=== PATIENT | male | born 1970 | race Caucasian/White ===

== ENCOUNTER 2020-02-19 08:25 | Day surgery (SDC) | payer MEDICAID, SELFPAY ==
--- NOTE | 2020-02-16 10:27 | HO.ANESPROP2 ---
HPI - Anesthesia Eval Consult details Narrative: 50yo M for umbilical hernia repair PMFSH Past Medical History Medical History (Updated 02/16/20 @ 11:01 by Adelita Loredo) Arthritis Back pain Elevated cholesterol Hepatitis C HTN (hypertension) Opioid abuse Surgical History Surgical History (Updated 02/16/20 @ 10:43 by Celsa Mckeon) History of arthroscopy of left knee Social History Social History (Updated 02/16/20 @ 11:00 by Adelita Loredo) Smoking Status: Current every day smoker Packs Per Day: 0.5 Cigarettes Per Day: 10.0 Years Smoked: 20 Use of substances other than those prescribed or required for medical reasons: Yes Substance Use Type: Marijuana Other Past Substance Use Problem:: h/o opioid, suboxone daily Meds Allergies Allergy/AdvReac Type Severity Reaction Status Date / Time No Known Allergies Allergy Unverified 02/01/20 19:36 [No Known Allergies*] Home Medications Medication Instructions Recorded Confirmed Type amlodipine 5 mg PO DAILY 02/16/20 02/16/20 History gabapentin 300 mg PO TID 02/16/20 02/16/20 History glecaprevir-pibrentasvir [Mavyret] 3 tab PO DAILY 02/16/20 02/16/20 History lisinopril 40 mg PO DAILY 02/16/20 02/16/20 History rosuvastatin [Crestor] 10 mg PO DAILY 02/16/20 02/16/20 History spironolactone 25 mg PO DAILY 02/16/20 02/16/20 History Exam Exam Date and Time: February 16, 2020 1027 Assessment and Plan Assessment Anesthesia Assessment: Chart Reviewed
[2020-02-16 10:40] VITALS: BMI 41.6
[2020-02-19 08:31] VITALS: BP 107/66; PULSE 67; RESP 20; TEMP 36.3; O2SAT 97
--- NOTE | 2020-02-19 13:22 | PC.NURSE ---
pt admitted to [facility] for umbilical hernia repair with Dr. Odonnell. pt has hx IV drug abuse and is difficult IV stick. pt stated you only get 4 tries to get my IV after 3 unsuccessful attempts by nursing and anesthesia, pt requested to leave. Dr Odonnell paged to see pt at the bedside. convinced patient to try one more time to get IV started for anesthesia for his operation. pt agreed to one more time and IV start was unsucessful. Pt requested to leave and ok with patient decision. pt to call general surgery office to reschedule repair of umbilical hernia. pt discharged from [facility] and sent home with family. no medications were given.
== END 2020-02-19 23:59 ==
LOC: HO.SSS 08:26
PROVIDERS: PCP Family Medicine; Visit Provider Surgery
DX: K42.9 Umbilical hernia without obstruction or gangrene (principal); F11.20 Opioid dependence, uncomplicated; I10 Essential (primary) hypertension; F17.210 Nicotine dependence, cigarettes, uncomplicated; Z53.9 Procedure and treatment not carried out, unspecified reason
CPT/HCPCS: J0690; J2250; J3010

== ENCOUNTER → 2020-03-26 10:16 | Outpatient (BNVA) | payer MEDICAID, SELFPAY | PROVIDERS: PCP Family Medicine; Visit Provider Surgery | DX: K42.9 Umbilical hernia without obstruction or gangrene (principal) | CPT/HCPCS: 99212 ==

== ENCOUNTER 2020-04-04 06:37 | Day surgery (SDC) | payer MEDICAID, SELFPAY ==
[2020-03-28 20:27] VITALS: BMI 84.9
--- NOTE | 2020-04-03 12:19 | P.CONAN_ITS ---
Documented by User: Adelita Loredo 04/03/20 12:21 HPI - Anesthesia Eval Consult details Narrative: 50yo M for Umbilical Hernia Repair Multiple cancels previously d/t poor IV access. Central line to be placed preoperatively. [facility] Past Medical History Medical History Arthritis Back pain Elevated cholesterol Hepatitis C HTN (hypertension) Opioid abuse Umbilical hernia Surgical History Surgical History History of arthroscopy of left knee Social History Social History Smoking Status: Current every day smoker Packs Per Day: 0.5 Cigarettes Per Day: 10.0 Years Smoked: 20 Smoked in Last 30 Days: Yes Patient Interested in Nicotine Replacement: No Use of substances other than those prescribed or required for medical reasons: No Substance Use Type: Marijuana Advance Directives: No Advance Directives Information Provided: No Advance Directives on File: No Meds Allergies Allergy/AdvReac Type Severity Reaction Status Date / Time No Known Allergies Allergy Unverified 02/01/20 19:36 [No Known Allergies*] Home Medications Medication Instructions Recorded Confirmed Type amlodipine 5 mg PO DAILY 02/16/20 03/28/20 History glecaprevir-pibrentasvir [Mavyret] 3 tab PO DAILY 02/16/20 03/28/20 History lisinopril 40 mg PO DAILY 02/16/20 03/28/20 History rosuvastatin [Crestor] 10 mg PO DAILY 02/16/20 03/28/20 History spironolactone 25 mg PO DAILY 02/16/20 03/28/20 History buprenorphine-naloxone [Suboxone] 1 film BUCCAL DAILY 02/19/20 03/28/20 History gabapentin 300 mg PO TID 03/29/20 03/29/20 History Exam Exam Date and Time: April 03, 2020 1219 Height,Weight and Vital Signs: Height 6 ft 3 in Weight 308 kg Assessment and Plan Assessment Anesthesia Assessment: Chart Reviewed Documented by User: Josie Coleman 04/04/20 09:25 [facility] Past Medical History Medical History Arthritis Back pain Elevated cholesterol Hepatitis C HTN (hypertension) Opioid abuse Umbilical hernia Family History Family history of problems with anesthesia: No Surgical History Surgical History History of arthroscopy of left knee History of Problems with Anesthesia: No Social History Social History Smoking Status: Current every day smoker Packs Per Day: 0.5 Cigarettes Per Day: 10.0 Years Smoked: 20 Smoked in Last 30 Days: Yes Patient Interested in Nicotine Replacement: No Use of substances other than those prescribed or required for medical reasons: No Substance Use Type: Marijuana Advance Directives: No Advance Directives Information Provided: No Advance Directives on File: No Meds Allergies Allergy/AdvReac Type Severity Reaction Status Date / Time No Known Allergies Allergy Unverified 02/01/20 19:36 [No Known Allergies*] Home Medications Medication Instructions Recorded Confirmed Type amlodipine 5 mg PO DAILY 02/16/20 03/28/20 History glecaprevir-pibrentasvir [Mavyret] 3 tab PO DAILY 02/16/20 03/28/20 History lisinopril 40 mg PO DAILY 02/16/20 03/28/20 History rosuvastatin [Crestor] 10 mg PO DAILY 02/16/20 03/28/20 History spironolactone 25 mg PO DAILY 02/16/20 03/28/20 History buprenorphine-naloxone [Suboxone] 1 film BUCCAL DAILY 02/19/20 03/28/20 History gabapentin 300 mg PO TID 03/29/20 03/29/20 History Exam Height,Weight and Vital Signs: Vital Signs Temp Pulse Resp BP Pulse Ox 04/04/20 07:40 98.4 F 93 16 129/81 96 Airway Mallampati Class: II TM Dist: >3cm Neck ROM: Full Loose/Missing/Broken Teeth: Yes (A few) Heart: RRR Lungs: CTAB Assessment and Plan Assessment Anesthesia Assessment: Anesthesia Plan Discussed and Chart Reviewed Final Anesthetic Review NPO: Yes ASA Class: III Final Preanesthetic Review: No Changes in Pt Med Stat, Meds/Allgs Chart Reviewed, Consent Obtained/Reviewed and Anes Risks/Benef Reviewed Patient Risk: Intermediate Procedure Risk: Low Anesthetic Plan Anesthetic Plan: GA Disposition: Standard PACU
[2020-04-04] VITALS (9 sets, daily range): BP systolic 118–148; BP diastolic 70–88; PULSE 64–93; RESP 8–20; TEMP 36.3–36.9; O2SAT 94–100; BMI 38.5
--- NOTE | 2020-04-04 07:24 | ECG_ITS ---
Test Reason : CHEST PAIN Blood Pressure : / mmHG Vent. Rate : 065 BPM Atrial Rate : 065 BPM P-R Int : 152 ms QRS Dur : 078 ms QT Int : 410 ms P-R-T Axes : 034 015 058 degrees QTc Int : 426 ms Normal sinus rhythm Nonspecific T wave abnormality Abnormal ECG When compared with ECG of 08-JUL-2018 22:47, Premature supraventricular complexes are no longer Present Nonspecific T wave abnormality now evident in Lateral leads Referred By: Harshad Gonzalez Electronically Signed By:DENISE MENARD MD
--- NOTE | 2020-04-04 07:36 | PC.NURSE ---
pt admitted to [facility] for umbilical hernia repair, pt states my chest hurts on the left side upon investigation pt states that pain is radiating to left arm. vitals signs stable. BP 129/81, HR 93, resp 18, O2 96% on room air. Dr. Gonzalez ordered 12 lead EKG. EKG shows normal sinus rhythm. full time staff interpreter and Dr. Gonzalez at bedside explaining need for central line and explaining findings of EKG. pt agreeable to central line.
--- NOTE | 2020-04-04 07:47 | MHC.SHP ---
Pre-Procedural Eval Section A The patient is an INPATIENT: No Changes since office visit: Yes Patient answered all questions; No Cold of Flu in the past 2 weeks, No New Medical Problems and No Changes in Medication The History & Physical has been completed within 30 days and I have reviewed it.: Yes Section B Chief Complaint: Umbilical Hernia Allergies: Allergies Allergy/AdvReac Type Severity Reaction Status Date / Time No Known Allergies Allergy Unverified 02/01/20 19:36 [No Known Allergies*] Plan Diagnosis/Plan: Unchanged Patient has been examined and remains a candidate for the planned procedure
--- NOTE | 2020-04-04 09:58 | P.BOP_ITS ---
Brief Operative Note Date of Service: 04/04/20 Pre-op diagnosis: Umbilical hernia Post-op diagnosis: same Procedure: Repair of umbilical hernia with mesh Implants: [address] mesh Surgeon: Eliecer Odonnell MD Anesthesia: GETA Aquarium Tank Attendant: Ericka Rodriguez Estimated blood loss (mL): 2 Pathology: none sent Condition: stable Disposition: PACU
--- NOTE | 2020-04-04 10:06 | W.PM.OPN ---
Operative Note Operative Note Date of Service: 04/04/20 Narrative: Preoperative diagnosis:Umbilical hernia Postoperative diagnosis: Same Procedure: Repair of umbilical hernia with mesh Surgeon: Eliecer Odonnell MD Clinical Services Consultant: NICOLAS Tejada Anesthesia: General endotracheal Indications for procedure: 50-year-old male patient presenting with a painful lump in the umbilicus which has increased in size over the past year. Patient is able to reduce the lump but feels the pain has increased especially when pressure is applied to the abdominal wall. Operative findings: Patient was found to have a 5 cm fascial defect at the umbilicus. This was repaired using an 8 cm round Ventralex mesh Specimen: None Estimated blood loss: 2 mL Complications: None Procedure details: Patient was brought to the OR placed in a supine position. After administering general anesthesia the patient's abdomen was prepped with ChloraPrep and draped in a sterile fashion. A surgical time-out was called consent confirmed. Patient received preoperative antibiotics and Venodyne boots were in place. Local anesthesia consisting of 0.75% Sensorcaine with epinephrine was infiltrated around the umbilicus in the midline. Incision was made in the midline surrounding the umbilicus carried out through subcutaneous tissue. Hernia sac was easily identified and dissected down to the fascial edge. The fascial margins were then clearly demarcated. Preperitoneal space was then entered and this was widened using electrocautery. Preperitoneal space was widened to allow an 8 cm mesh. At this point the Ventralex 8 cm round mesh was obtained. This was placed into the preperitoneal space using a parachute type technique with 4 quadrant sutures of 1. Tycron sutures. The mesh was then placed in the preperitoneal space and the 4 quadrant sutures tied off. The fascia was then closed over the mesh in clear operating the mesh into the closure using [id number] 1. Tycron sutures. The wounds were then irrigated with saline solution and suctioned dry. Additional local was infiltrated into the muscular and subcutaneous tissue. Umbilical skin was then reapproximated to the fascia using a 3-0 Polysorb suture. Subcutaneous tissue and dermis reapproximated using interrupted 3 0 Polysorb sutures. Skin was then closed using a running subcuticular 4-0 Polysorb suture. Steri-Strips 4 x 4 gauze and Tegaderm was then applied. The patient tolerated the procedure well. Sponge, instrument, needle counts reported as correct. Patient was transferred to PACU in stable condition.
[2020-04-04] MEDS: Ketorolac Tromethamine 30 MG/ML VIAL IVPUSH (10:35)
[2020-04-04] MEDS: oxyCODONE HCl Immed Release 5 MG TABLET 10 MG PO (10:38)
[2020-04-04] MEDS: fentaNYL citrate/PF 100 MCG/2 ML VIAL 25 MCG IVPUSH (10:43)
--- NOTE | 2020-04-04 11:20 | HO.POSTANES ---
Post Anesthesia Evaluation Post Anesthesia Evaluation Vital Signs: Vital Signs Temp Pulse Resp BP Pulse Ox 04/04/20 11:00 97.4 F 68 20 123/84 96 04/04/20 10:46 68 18 118/86 95 04/04/20 10:43 20 04/04/20 10:40 64 8 L 122/77 94 04/04/20 10:25 70 18 127/70 94 04/04/20 10:20 79 18 138/80 97 04/04/20 10:15 80 16 140/80 H 100 04/04/20 10:10 97.7 F 78 12 148/88 H 100 04/04/20 07:40 98.4 F 93 16 129/81 96 Anesthesia: General Endotracheal-GETA Mental Status: Awake Pain Control: Satisfactory Nausea/Vomiting: None Hydration: Adequate Anesthesia-Related Issues: No Anes. Related Issues
== END 2020-04-04 11:45 | disposition home or self-care (01) ==
PROVIDERS: PCP Family Medicine; Visit Provider Surgery
PROC: (CPT 49585; principal; 2020-04-04 08:30)
DX: K42.9 Umbilical hernia without obstruction or gangrene (principal); I10 Essential (primary) hypertension; B19.20 Unspecified viral hepatitis C without hepatic coma; M19.90 Unspecified osteoarthritis, unspecified site; E78.00 Pure hypercholesterolemia, unspecified; Z79.899 Other long term (current) drug therapy; F11.20 Opioid dependence, uncomplicated; F12.90 Cannabis use, unspecified, uncomplicated; F17.210 Nicotine dependence, cigarettes, uncomplicated
CPT/HCPCS: 49585; 93005; C1781; J0690; J1170; J1885; J2250; J2405; J3010

== ENCOUNTER → 2020-04-10 10:46 | Outpatient (BNVA) | payer MEDICAID, SELFPAY | PROVIDERS: PCP Family Medicine; Referring Provider Family Medicine; Visit Provider Surgery | DX: Z48.815 Encounter for surgical aftercare following surgery on the digestive system (principal) | CPT/HCPCS: 99212 ==

== ENCOUNTER 2020-04-16 12:18 | Emergency (ER) | payer MEDICAID, SELFPAY ==
--- NOTE | 2020-04-16 13:28 | PC.NURSE ---
pt angry because he is waiting, also states his abdomen no longer hurts and he is leaving.
== END 2020-04-16 13:30 | disposition left against medical advice (07) ==
PROVIDERS: Emergency Provider Emergency Medicine; PCP Family Medicine
DX: R10.9 Unspecified abdominal pain (principal)
CPT/HCPCS: 99281

== ENCOUNTER → 2020-04-17 15:21 | Outpatient (BNVA) | payer MEDICAID, SELFPAY | PROVIDERS: PCP Family Medicine; Visit Provider Surgery | DX: K42.9 Umbilical hernia without obstruction or gangrene (principal) | CPT/HCPCS: 99212 ==

== ENCOUNTER → 2020-04-26 09:18 | Outpatient (BNVA) | payer MEDICAID, SELFPAY | PROVIDERS: PCP Family Medicine; Visit Provider Surgery | DX: K42.9 Umbilical hernia without obstruction or gangrene (principal) | CPT/HCPCS: 99212 ==

== ENCOUNTER 2020-04-30 10:26 | Outpatient (REF) | payer MEDICAID, SELFPAY ==
[2020-04-30 12:16] LABS: MANUAL DIFF FLAG NO
[2020-04-30 12:20] LABS: Basophils Percent Auto 0.5 % (0-2); Eosinophils Absolute Auto 0.1 X10*3/uL (0.0-0.4); Eosinophils Percent Auto 2.5 % (0-4); Hematocrit 42.3 % (42-52); Hemoglobin 14.3 g/dl (14.0-18.0); Imm Gran Abs Auto 0.02 X10*3/uL (0.00-0.03); Imm Gran Pct Auto 0.4 % (0.0-0.4); Lymphocytes Absolute Auto 2.1 X10*3/uL (1.2-4.9); Lymphocytes Percent Auto 37.6 % (20-40); Mean Corpuscular HGB Conc 33.8 g/dl (31.0-36.0); Mean Corpuscular Hemoglobin 30.6 pg (27.0-33.0); Mean Corpuscular Volume 90.4 fL (80-98); Mean Platelet Volume 11.1 fL (9.4-12.4); Monocytes Absolute Auto 0.8 X10*3/uL (0.1-1.2); Monocytes Percent Auto 13.4 % (2-11); Neutrophils Absolute Auto 2.6 X10*3/uL (2.0-8.3); Neutrophils Percent Auto 45.6 % (45-73); Platelet Count 213 X10*3/uL (160-400); Red Blood Count 4.68 X10*6/uL (4.60-5.80); Red Cell Distribution Width 12.8 % (11.0-16.0); White Blood Count 5.6 X10*3/uL (4.8-10.8)
[2020-04-30 12:50] LABS: Alanine Aminotransferase 30 U/L (0-40); Alkaline Phosphatase 71 U/L (39-117); Anion Gap 12 (12-20); Aspartate Amino Transferase 38 U/L (5-37); Bilirubin Direct 0.2 mg/dL (0.0-0.5); Bilirubin Total 0.4 mg/dL (0.0-1.0); Blood Urea Nitrogen 15 mg/dL (9-16); Calcium 8.8 mg/dL (8.4-10.2); Carbon Dioxide 27 mmol/L (22-29); Chloride 103 mmol/L (96-108); Cholesterol 144 mg/dL; Estimated Glomerular Filt Rate > 60; Glucose Random 77 mg/dL (60-115); HDL Cholesterol 37 mg/dL; LDL Cholesterol Calculated 81 mg/dl; Potassium 5.2 mmol/l (3.3-5.1); Sodium 137 mmol/L (135-145); Total Protein 7.3 g/dL (6.5-8.0); Triglycerides 131 mg/dL
[2020-04-30 12:56] LABS: Estimated Average Glucose 117 mg/dL; Hemoglobin A1c % 5.7 %
[2020-05-02 04:02] LABS: ~Hepatitis C Antibody Reactive (Nonreactive)
[2020-05-02 04:12] LABS: HIV AB/AG Nonreactive (Nonreactive); HIV Num 1 0.06 S/CO (0.00-0.99)
== END 2020-04-30 10:27 | disposition home or self-care (01) ==
LOC: HO.LAB 10:26
PROVIDERS: PCP Family Medicine; Visit Provider Family Medicine
DX: B18.2 Chronic viral hepatitis C (principal); E78.5 Hyperlipidemia, unspecified; F11.20 Opioid dependence, uncomplicated
CPT/HCPCS: 36415; 80053; 80061; 80076; 82248; 83036; 85025; 86803; 87389; 87522; 99212

== ENCOUNTER → 2020-05-09 09:44 | Outpatient (BNVA) | payer MEDICAID, SELFPAY | PROVIDERS: PCP Family Medicine; Visit Provider Surgery | DX: Z48.815 Encounter for surgical aftercare following surgery on the digestive system (principal); Z87.19 Personal history of other diseases of the digestive system | CPT/HCPCS: 99212 ==

== ENCOUNTER → 2020-06-06 12:40 | Outpatient (BNVA) | payer MEDICAID, SELFPAY | PROVIDERS: PCP Family Medicine; Visit Provider Internal Medicine Cardiovascular Disease | DX: Z76.89 Persons encountering health services in other specified circumstances (principal) | CPT/HCPCS: 93005; 99212 ==

== ENCOUNTER → 2020-06-07 09:43 | Outpatient (BNVA) | payer MEDICAID, SELFPAY | PROVIDERS: PCP Family Medicine; Visit Provider Surgery | DX: Z76.89 Persons encountering health services in other specified circumstances (principal) | CPT/HCPCS: 99212 ==

== ENCOUNTER 2020-08-16 13:54 | Outpatient (REF) | payer MEDICAID, SELFPAY ==
--- NOTE | ~2020-08-16 | XR_ITS ---
EXAMINATION: XR SHOULDER, RIGHT CLINICAL INFORMATION: Right shoulder pain. COMPARISON: None TECHNIQUE: AP external rotation, Grashey, scapular Y, and axillary views of the right shoulder. FINDINGS: There is degenerative change of the glenohumeral joint with narrowing of the joint inferiorly and prominent spurring. Pit erosions are seen about the humeral head. No acute fracture or dislocation is seen. No calcific tendinitis. No significant abnormality of the acromioclavicular joint is noted. There is no widening of the coracoclavicular space. XR/XR shoulder RT min 2V IMPRESSION: Degenerative change of the glenohumeral joint with narrowing inferiorly and prominent spurring of the humeral head.
[2020-08-16 16:00] LABS: Alanine Aminotransferase 22 U/L (0-40); Alkaline Phosphatase 68 U/L (39-117); Aspartate Amino Transferase 32 U/L (5-37); Bilirubin Direct 0.3 mg/dL (0.0-0.5); Bilirubin Total 0.7 mg/dL (0.0-1.0); Total Protein 7.1 g/dL (6.5-8.0)
[2020-08-18 14:21] LABS: HCV Log PCR 6.84 Log IU/mL (NOT DETECTED)
== END 2020-08-16 13:55 | disposition home or self-care (01) ==
LOC: HO.LAB 13:54
PROVIDERS: PCP Nurse Practitioner Primary Care; Visit Provider Nurse Practitioner Primary Care
DX: G89.29 Other chronic pain (principal); M25.511 Pain in right shoulder; B19.20 Unspecified viral hepatitis C without hepatic coma
CPT/HCPCS: 36415; 73030; 80076; 87522

== ENCOUNTER → 2021-08-18 12:28 | Outpatient (BNVA) | payer MEDICAID, SELFPAY | PROVIDERS: PCP Nurse Practitioner Primary Care; Referring Provider Nurse Practitioner Primary Care; Visit Provider Internal Medicine Cardiovascular Disease | DX: R07.9 Chest pain, unspecified (principal) | CPT/HCPCS: 93005; 99212 ==

== ENCOUNTER 2022-06-11 08:15 | Outpatient (REF) | payer MEDICAID, SELFPAY ==
--- NOTE | ~2022-06-11 | MM_ITS ---
EXAMINATION: MM DIAGNOSTIC DIGITAL BREAST TOMOSYNTHESIS, BILATERAL US DIAGNOSTIC ULTRASOUND BREAST, BILATERAL CLINICAL INFORMATION: 52-year-old male with one-month bilateral nipple pain and mild palpable fullness anterior lower right. No discharge. No prior breast imaging. COMPARISON: None (current study represents initial baseline exam). TECHNIQUE: Digital breast tomosynthesis is performed in both the craniocaudal and mediolateral oblique views along with computer-aided detection (CAD). Synthesized 2D images are generated from the tomosynthesis. Ultrasound of both breasts is targeted to the retroareolar and periareolar regions with additional imaging on the right targeted to the area of palpable concern. Grayscale imaging and color Doppler are performed without and with harmonics. FINDINGS: There are scattered areas of fibroglandular density (ACR BI-RADS breast composition Category b). There is mild bilateral retroareolar gynecomastia type pattern, slightly greater on the right. There is no mass or architectural abnormality. No abnormal calcifications. No skin thickening or coarsening of the stromal markings. The axilla are unremarkable. The skin contours are smooth. Ultrasound bilateral breasts demonstrate mild bilateral retroareolar gynecomastia type pattern, slightly greater on the right. There is no cystic or solid mass or architectural abnormality. No skin thickening or edema tracking in soft tissue planes. Results are discussed with the patient at time of visit, using an parts interpreter. MM/MM tomosynthesis diagnostic BI IMPRESSION: -Mild bilateral retroareolar gynecomastia, slightly greater on right. ASSESSMENT: BI-RADS 2: Benign RECOMMENDATION: Patient should be managed based on the clinical impression.
== END 2022-06-11 08:16 | disposition home or self-care (01) ==
LOC: HO.MAMMO 08:15
PROVIDERS: Visit Provider Nurse Practitioner Primary Care
DX: N64.4 Mastodynia (principal)
CPT/HCPCS: 76642; 77062; 77066

== ENCOUNTER 2023-02-23 14:47 | Outpatient (REF) | payer MEDICAID, SELFPAY | END 2023-02-23 14:48 | disposition home or self-care (01) | LOC: HO.HHCL 14:47 | PROVIDERS: Visit Provider Nurse Practitioner Primary Care | DX: I10 Essential (primary) hypertension (principal); E78.5 Hyperlipidemia, unspecified; R73.01 Impaired fasting glucose | CPT/HCPCS: 36415; 80053; 80061; 82043; 82570; 83036 ==

== ENCOUNTER 2023-08-12 13:48 | Outpatient (REF) | payer MEDICAID, SELFPAY ==
[2023-08-12 16:39] LABS: Estimated Average Glucose 143 mg/dL; Hemoglobin A1c % 6.6 % (<6.0)
== END 2023-08-12 13:49 | disposition home or self-care (01) ==
LOC: HO.HHCL 13:48
PROVIDERS: Visit Provider Nurse Practitioner Primary Care
DX: R73.01 Impaired fasting glucose (principal)
CPT/HCPCS: 36415; 83036

== ENCOUNTER 2023-11-09 12:13 | Outpatient (REF) | payer MEDICAID, SELFPAY | END 2023-11-09 12:14 | disposition home or self-care (01) | LOC: HO.HHCL 12:13 | PROVIDERS: Visit Provider Nurse Practitioner Primary Care | DX: Z13.89 Encounter for screening for other disorder (principal) ==

== ENCOUNTER 2024-02-17 09:40 | Outpatient (REF) | payer MEDICAID, SELFPAY ==
[2024-02-17 11:39] LABS: Alanine Aminotransferase 12 U/L (0-40); Alkaline Phosphatase 53 U/L (39-117); Aspartate Amino Transferase 20 U/L (5-37); Bilirubin Direct 0.1 mg/dL (0.0-0.5); Bilirubin Total 0.3 mg/dL (0.0-1.0); Total Protein 7.2 g/dL (6.5-8.0)
[2024-02-17 12:18] LABS: HIV AB/AG Nonreactive (Nonreactive); HIV Num 1 0.06 S/CO (0.00-0.99)
[2024-02-19 13:33] LABS: HCV Log PCR <1.18 NOT DETECTED Log IU/mL (NOT DETECTED); HepC Viral Load <15 NOT DETECTED IU/mL (NOT DETECTED)
== END 2024-02-17 09:41 | disposition home or self-care (01) ==
LOC: HO.HHCL 09:40
PROVIDERS: Visit Provider Family Medicine
DX: F11.91 Opioid use, unspecified, in remission (principal)
CPT/HCPCS: 36415; 80076; 87389; 87522

== ENCOUNTER 2024-08-01 11:05 | Outpatient (REF) | payer MEDICAID, SELFPAY ==
--- OUTSIDE RECORDS SUMMARY | 2024-08-01 13:21 | XMS_ITS | Encounter Summary ---
Author Organization [employer] Address [address] [facility] [address] [place] [address] Care Team Providers Care Spar Machine Operator Name Role Phone Magali Meléndez Primary Care Provider [phone] Reason for Visit * Reason Comments Med Refill Encounter Details Date Type Department Care Team ([facility] st Contact Info) Description 05/29/2024 Refill [facility] [address] [place], [place] [phone] Giorgio Gloria MD [address], [place] [phone] Uncomplicated opioid dependence (CMS/HCC) Social History Tobacco Use Types Packs/Day Years Used Date Smoking Tobacco: Former Cigarettes Smokeless Tobacco: Never Alcohol Use Standard Drinks/Week Comments Never 0 (1 standard drink = 0.6 oz pur e alcohol) Alcohol Answer Date Recorded How often do you have a drink containing alcohol ? 0 02/23/2023 Average Number of Drinks Not on file 023 How often do you have six or more drinks on one occasion? 0 02/23/2023 Score 0 02/23/2023 Depression Answer Date Recorded Patient Health Questionnaire-9 Score 10 02/24/2024 Patient Health Questionnaire-9 Score 10 02/24/2024 Last PHQ-9: Questionnaire Data Not on file 1 Housing Stability Answer Date Recorded What is your housing situation today? I have lanette calderon 05/11/[address] you li ve. Do you have problems with any of the following? None of the above 05/11/2024 Food Insecurity Answer Date Recorded Within the past 12 months, y ou worried that your food would run out before you got money to buy more: Never True 05/11/2024 Within the past 12 months,th e food you bought just didn't last and you didn't have enough money to get more: Never True Transportation Answer Date Recorded In the past 12 months, has l ack of transportation kept you from medical appts, meetings, work or from getting things needed for daily living? No 05/11/2024 Utilities Answer Date Recorded In the past 12 months, has t he electric, gas, oil or water company threatened to shut off services in your home? No 05/11/2024 Depression Answer Date Recorded Patient Health Questionnaire-2 Score 4 02/24/2024 Internet Access Answer Date Recorded Internet Access Q1 Yes 05/11/2024 Internet Access Q2 Not on file 05/11/2024 Sex and Gender Information Value Date Recorded Sex Assigned at Male 03/16/2022 10:34 AM EDT Legal Sex Male 10:34 AM EDT Gender Identity Male 03/16/2022 10:34 AM EDT Sexual Orientation Straight 03/16/2022 10 :34 AM EDT documented as of this encounter Plan of Treatment Upcoming Encounters Date Type Department Care Team (Late st Contact Info) Description 08/09/2024 10:15 AM EDT Telemedicine [facility] [address] [place] [phone] Kailee Heath MD [address] [place] [phone] 08/10/2024 2:00 PM EDT Office Visit [facility] [address] [place] [phone] Magali Meléndez ANP [address] [place] [phone] documented as of this encounter Visit Diagnoses Diagnosis Uncomplicated opioid dependence (CMS/HCC) documented in this encounter Additional Health Concerns Assessment Noted Time PHQ-9 Depression Total Score: 10 024 2:27 PM EDT documented as of this encounter Care Teams Spar Machine Operator Relationship Specialty Start Date End Date Magali Meléndez ANP [address] [place] [phone] PCP - General Family Medicine 05/31/20 documented as of this encounter
--- OUTSIDE RECORDS SUMMARY | 2024-08-01 13:21 | XMS_ITS | Encounter Summary ---
Author Organization [employer] [facility] Address [address] [place] [address] 7[address] [place] [address] Care Team Providers Care Pulp Bleacher Name Role Phone Magali Meléndez Primary Care Provider [phone] Encounter Details Date Type Department Care Team (Latest Contact Info) Description 05/26/2019 Abstract [facility] Dental, Provider, DDS Social History Tobacco Use Types Packs/Day Years Used Date Smoking Tobacco: Never Assessed Sex and Gender Information Value Date Recorded Sex Assigned at Male 03/16/2022 10:34 AM EDT Legal Sex Male 10:34 AM EDT Gender Identity Male 03/16/2022 10:34 AM EDT Sexual Orientation Straight 03/16/2022 10 :34 AM EDT documented as of this encounter Plan of Treatment Upcoming Encounters Date Type Department Care Team (Late st Contact Info) Description 08/09/2024 10:15 AM EDT Telemedicine [facility] [address] [place] [phone] Kailee Heath MD [address] [place] [address] 08/10/2024 2:00 PM EDT Office Visit [facility] [address] [place] [phone] Magali Meléndez ANP [address] [place] [address] documented as of this encounter Visit Diagnoses Not on filedocumented in this encounter Care Teams Pulp Bleacher Relationship Specialty Start Date End Date Magali Meléndez ANP [address] [place] [phone] PCP - General Family Medicine 05/31/20 documented as of this encounter
--- OUTSIDE RECORDS SUMMARY | 2024-08-01 13:21 | XMS_ITS | Encounter Summary ---
Author Organization [employer] Address [address] [facility] [facility] [address] [place] [address] Care Team Providers Care Elementary Vocal Music Teacher Name Role Phone Magali Meléndez Primary Care Provider [phone] Encounter Details Date Type Department Care Team (Latest Contact Info) Description 07/07/2024 Travel Social History Tobacco Use Types Packs/Day Years [...] Info) Description 08/09/2024 10:15 AM EDT Telemedicine [facility] [address] [place] [phone] Kailee Heath MD [address] [place] [phone] 08/10/2024 2:00 PM EDT Office Visit [facility] [address] [place] [phone] Magali Meléndez ANP [address] [place] [phone] documented as of this encounter Goals Goal Patient Goal Type Associated Problems Recent Progress Patient-Stated? Author Increase coping skills to promote long-term recovery and improve ability to perform daily activities General No Jose De Jesus Gutierrez, JAYRO documented as of this encounter Visit Diagnoses Not on filedocumented in this encounter Additional Health Concerns Assessment Noted Time PHQ-9 Depression Total Score: 10 024 2:27 PM EDT documented as of this encounter Care Teams Elementary Vocal Music Teacher Relationship Specialty Start Date End Date Magali Meléndez ANP [address] [place] [phone] PCP - General Family Medicine 05/31/20 documented as of this encounter
--- OUTSIDE RECORDS SUMMARY | 2024-08-01 13:21 | XMS_ITS | Encounter Summary ---
Author Organization [employer] Address [address] [facility] [address] [place] [address] Care Team Providers Care Circuitry Negative Inspector Name Role Phone Magali Meléndez Primary Care Provider [phone] Reason for Visit * Reason Comments Med Refill Encounter Details Date Type Department Care Team ([facility] st Contact Info) Description 11/22/2023 Refill [facility] [address] [place], [place] [phone] Kailee Heath MD [address] [place], [place] [phone] Uncomplicated opioid dependence (CMS/[facility]) Social History Tobacco Use Types Packs/Day Years [...] Answer Date Recorded Patient Health Questionnaire-9 Score 16 09/06/2023 Patient Health Questionnaire-9 Score 16 09/06/2023 Last PHQ-9: Questionnaire Data Not on file 0 09/06/2023 Housing Stability Answer Date Recorded What is your housing situation today? I have lanette calderon 03/06/[address] you li ve. Do you have problems with any of the following? None of the above 03/06/2023 Food Insecurity Answer Date Recorded Within the past 12 months, y ou worried that your food would run out before you got money to buy more: Never True 03/06/2023 Within the past 12 months,th e food you bought just didn't last and you didn't have enough money to get more: Never True Transportation Answer Date Recorded In the past 12 months, has l ack of transportation kept you from medical appts, meetings, work or from getting things needed for daily living? No 03/06/2023 Utilities Answer Date Recorded In the past 12 months, has t he electric, gas, oil or water company threatened to shut off services in your home? No 03/06/2023 Depression Answer Date Recorded Patient Health Questionnaire-2 Score 6 09/06/2023 Sex and Gender Information Value Date Recorded Sex Assigned at Male 03/16/2022 10:34 AM EDT Legal Sex Male 10:34 AM EDT Gender Identity Male 03/16/2022 10:34 AM EDT Sexual Orientation Straight 03/16/2022 10 :34 AM EDT documented as of this encounter Plan of Treatment Upcoming Encounters Date Type Department Care Team (Late st Contact Info) Description 08/09/2024 10:15 AM EDT Telemedicine [facility] [address] [place] [phone] Kailee Heath MD [address] [place] [phone] 08/10/2024 2:00 PM EDT Office Visit [facility] [address] [place] [phone] Magali Meléndez ANP [address] [place] [phone] documented as of this encounter Visit Diagnoses Diagnosis Uncomplicated opioid dependence (CMS/HCC) documented in this encounter Additional Health Concerns Assessment Noted Time PHQ-9 Depression Total Score: 16 024 11:14 AM EDT documented as of this encounter Care Teams Circuitry Negative Inspector Relationship Specialty Start Date End Date Magali Meléndez ANP [address] [place] [phone] PCP - General Family Medicine 05/31/20 documented as of this encounter
--- OUTSIDE RECORDS SUMMARY | 2024-08-01 13:21 | XMS_ITS | Encounter Summary ---
Author Organization [employer] Address [address] [facility] [address] [place] [address] Care Team Providers Care Composing Machine Operator Name Role Phone Magali Meléndez Primary Care Provider [phone] Reason for Visit * Reason Onset Date Comments Med Refill 07/19/2024 Encounter Details Date Type Department Care Team (Late st Contact Info) Description 07/19/2024 Refill [facility] MED[facility]INE [address] [place] [id number] Jose De Jesus Gutierrez, JAYRO [address] [place] [address] Essential hypertension Social History Tobacco Use Types Packs/Day Years [...] AM EDT documented as of this encounter Miscellaneous Notes * Telephone Encounter - Jose De Jesus Gutierrez RN - 07/19/2024 10:58 AM EST Spoke with pt for OBAT, requesting refill on spironolactone. documented in this encounter Plan of Treatment Upcoming Encounters Date Type Department Care Team (Late st Contact Info) Description 08/09/2024 10:15 AM EDT Telemedicine [facility] MEDICINE [address] [place] [phone] Kailee Heath MD [address] [place] [phone] 08/10/2024 2:00 PM EDT Office Visit [facility] MED[facility]INE [address] [place] [address] [phone] Magali Meléndez ANP [address] [place] [phone] documented as of this encounter Goals Goal Patient Goal Type Associated Problems Recent Progress Patient-Stated? Author Increase coping skills to promote long-term recovery and improve ability to perform daily activities General No Jose De Jesus Gutierrez, JAYRO documented as of this encounter Visit Diagnoses Diagnosis Essential hypertension Unspecified essential hypertension documented in this encounter Additional Health Concerns Assessment Noted Time PHQ-9 Depression Total Score: 10 024 2:27 PM EDT documented as of this encounter Care Teams Composing Machine Operator Relationship Specialty Start Date End Date Magali Meléndez ANP [address] [place] [address] PCP - General Family Medicine 05/31/20 documented as of this encounter
--- OUTSIDE RECORDS SUMMARY | 2024-08-01 13:21 | XMS_ITS | Clinical Summary ---
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 ciclopirox (Penlac) 8 % solution Apply topically at bedtime. 6 mL 024 Active senna-docusate sodium (Senokot-S) 8.6-50 MG tabletIndications :Constipation, unspecified constipation type 1-2 tablets as needed daily for constipation 90 tablet 3 024 Active Alcohol Swabs padsIndications:T ype 2 diabetes mellitus with hyperlipidemia (CMS/HCC) (CMS/HCC) 1 each if needed (to clean skin). 100 each 11 024 Active FreeStyle lancetsIndication s:Type 2 diabetes mellitus with hyperlipidemia (CMS/HCC) (CMS/HCC) 1 each by Other route 2 times daily. 100 each 024 2024 Active FREESTYLE LITE test stripIndications: Type 2 diabetes mellitus with hyperlipidemia (CMS/HCC) (CMS/HCC) Use to check blood sugar twice daily or more as needed 100 each 024 Active Blood Glucose Monitoring Suppl (FreeStyle Lite) w/Device kitIndications:Ty pe 2 diabetes mellitus with hyperlipidemia (CMS/HCC) (CMS/HCC) 1 each in the morning. 1 kit 024 Active Diclofenac Sodium (Voltaren) 1 % gelIndications:Madhuri mbar spondylosis APPLY 2 GRAMS TOPICALLY TO THE AFFECTED AREA(S) UP TO FOUR TIMES DAILY IF NEEDED FOR PAIN 100 g 2 Active lisinopril 40 MG tabletIndications :Essential hypertension TAKE 1 TABLET BY MOUTH EVERY DAY 90 tablet 1 Active metFORMIN XR (Glucophage-XR) 500 MG 24 hr tabletIndications :Type 2 diabetes mellitus with hyperlipidemia (CMS/HCC) (CMS/HCC) TAKE 1 TABLET BY MOUTH EVERY DAY WITH DINNER DO NOT BREAK, CRUSH, DISSOLVE OR CHEW 90 tablet 1 Active naloxone (Narcan) 4 mg/0.1 mL nasal spray Administer 1 spray (4 mg) into affected nostril(s) if needed for opioid reversal. May repeat every 2-3 minutes if needed, alternating nostrils, until medical assistance becomes available. 2 each 024 2024 Active rosuvastatin (Crestor) 10 MG tabletIndications :Dyslipidemia TAKE 1 TABLET BY MOUTH EVERY DAY 90 tablet 3 Active Aspirin Low Dose 81 MG chewable tablet CHEW AND SWALLOW 1 TABLET BY MOUTH EVERY DAY 90 tablet 3 024 Active Buprenorphine HCl-Naloxone HCl (Suboxone) 8-2 MG SL filmIndications:U ncomplicated opioid dependence (CMS/HCC) Place 1 Film under the tongue 2 times daily. 56 Film 025 2024 Active spironolactone (Aldactone) 25 MG tabletIndications :Essential hypertension Take 1 tablet (25 mg) by mouth Once per day. 90 tablet 025 Active spironolactone (Aldactone) 25 MG tabletIndications :Essential hypertension Take 1 tablet (25 mg) by mouth Once per day. 90 tablet 024 2024 Discontinued(R eorder (will not trigger notification to Pharmacy)) Buprenorphine HCl-Naloxone HCl (Suboxone) 8-2 MG SL filmIndications:U ncomplicated opioid dependence (CMS/HCC) Place 1 Film under the tongue 2 times daily. 56 Film 025 2024 Discontinued(R eorder (will not trigger notification to Pharmacy)) Active Problems Problem Noted Date Diagnosed Date Prediabetes 05/23/2024 Screening for lung cancer 05/23/2024 Overview (05/23/2024): LDCT referral faxed in December 2023 Impaired fasting glucose 10/21/2023 Overview (05/23/2024): Lab Results Component Value Date HGBA1C 6.6 (H) 08/12/2023 HGBA1C 6.0 02/23/2023 HGBA1C 5.9 (H) 12/03/2020 Tipped into T2DM 07/2023 range, awaiting repeat for confirmation On metformin 500mg XR daily ANGEL (generalized anxiety disorder) 09/06/2023 Positive colorectal cancer screening using Colog uard test 03/17/2023 Overview (10/21/2023): Referral to GI 03/17/23; no record in [facility] of a GI visit since (as of 10/21/23) Hypertension 02/19/2023 Moderately severe depression 11/26/2022 Assessment & Plan (11/26/2022 8:55 AM EDT): Assessment and Plan: Ed was engaged with active reflective listening and open-ended questions. Assessed symptoms, risks, and social supports with direct questions. Discussed current symptoms intensity and frequency. Emotions were normalized and validated. He identified use of cannabis as coping mechanisms and as protective factors. Declined interest in coping skills. Discussed OP therapy he agreed to meet with me every 2 weeks. Provided education around integrated medicine and the options of follow up BE's as needed. Provided contact information should questions or concerns arise. Plan: Ed will continue to engage in effective coping mechanisms that has worked for him. He will keep engaged with me on bi-weekly basis. Patient with hx of MH services, reported sxs such as lack of motivation, little energy, over eating, concern about his elder parents . He denies SI/HI/PIERSON & YU at this time. Lives with and son, currently disable, concern about elder parents that live alone in [place]. Patient will benefit from Ind. Theray At this time Ed Camargo meets criteria for Visit Diagnoses: Problem List Items Addressed This Visit Other Depression, unspecified Patient ready to address current needs denies interest in other therapist Strengths include willing to engage with me PLAN: 1. Follow up with [facility]: Recommended for follow-up: 12/10/22 2. Patient goal is to engage in MH services 3. Behavioral Recommendations a. Ind. Therapy b. Keep OBAT appt Opioid use disorder in remission 06/09/2022 Assessment & Plan (06/13/2024 8:56 PM EST): - Maintenance stage - Utox review: Usually positive bup/THC. Positive opi/fent for 2 wks in May 2019 after 4 wks of sobriety, then negative opi/fent since 06/07/19 - Overdose risk: low-intermediate. Risk factor - decreased tolerance - Continue current Suboxone dose - Continue current OD prevention / recovery support / harm reduction. Assessment & Plan (04/17/2024 6:09 PM EST): - Maintenance stage - Utox review: Usually positive bup/THC. Positive opi/fent for 2 wks in May 2019 after 4 wks of sobriety, then negative opi/fent since 06/07/19 - Overdose risk: average - Continue current Suboxone dose - Continue current OD prevention / recovery support / harm reduction. Assessment & Plan (02/23/2024 9:48 AM EDT): - Maintenance stage - Utox review: Usually positive bup/THC. Positive opi/fent for 2 wks in May 2019 after 4 wks of sobriety, then negative opi/fent since 06/07/19 - Overdose risk: average - Continue current Suboxone dose - Continue current OD prevention / recovery support / harm reduction. Assessment & Plan (10/06/2023 5:12 AM EDT): - Maintenance stage - Utox review: Usually positive bup/THC. Positive opi/fent for 2 wks in May 2019 after 4 wks of sobriety, then negative opi/fent since 06/07/19 - Continue current Suboxone dose - Continue current OD prevention / recovery support / harm reduction. Assessment & Plan (06/09/2023 4:56 AM EST): - Maintenance stage - Utox review: Usually positive bup/THC. Positive opi/fent for 2 wks in May 2019 after 4 wks of sobriety, then negative opi/fent since 06/07/19 - Continue current Suboxone dose - Continue current OD prevention / recovery support / harm reduction. Assessment & Plan (04/13/2023 9:44 PM EST): - Maintenance stage - Utox review: Usually positive bup/THC. Positive opi/fent for 2 wks in May 2019 after 4 wks of sobriety, then negative opi/fent since 06/07/19 - Continue current Suboxone dose - Continue current OD prevention / recovery support / harm reduction. Assessment & Plan (02/17/2023 12:00 PM EDT): - Maintenance stage - Utox review: Usually positive bup/THC. Positive opi/fent for 2 wks in May 2019 after 4 wks of sobriety, then negative opi/fent since 06/07/19 - Continue current Suboxone dose - Continue current OD prevention / recovery support / harm reduction. Assessment & Plan (01/20/2023 9:29 AM EDT): - Maintenance stage - Utox review: Usually positive bup/THC. Positive opi/fent for 2 wks in May 2019 after 4 wks of sobriety, then negative opi/fent since 06/07/19 - Continue current Suboxone dose - Continue current OD prevention / recovery support / harm reduction. Assessment & Plan (10/28/2022 11:11 AM EDT): - Maintenance stage - Utox review: Usually positive bup/THC. Positive opi/fent for 2 wks in May 2019 after 4 wks of sobriety, then negative opi/fent since 06/07/19 - Continue current Suboxone dose - Continue current OD prevention / recovery support / harm reduction. Assessment & Plan (09/30/2022 10:00 AM EDT): - Maintenance stage - Utox review: Usually positive bup/THC. Positive opi/fent for 2 wks in May 2019 after 4 wks of sobriety, then negative opi/fent since 06/07/19 - Continue current Suboxone dose - Continue current OD prevention / recovery support / harm reduction. Assessment & Plan (06/10/2022 12:18 PM EST): - Maintenance stage - Utox review: Usually positive bup/THC. Positive opi/fent for 2 wks in May 2019 after 4 wks of sobriety, then negative opi/fent since 06/07/19 - Continue current Suboxone dose - Continue current OD prevention / recovery support / harm reduction. Chest pain 12/07/2019 Umbilical hernia 09/13/2018 Lumbar spondylosis 06/21/2018 Dyslipidemia 05/24/2018 Overview (10/21/2023): Rosuvastatin 10mg ASA 81mg Lab Results Component Value Date CHOL 135 02/23/2023 HDL 40 (L) 02/23/2023 LDLCHOLCAL 65 02/23/2023 TRIG 151 (H) 02/23/2023 Essential hypertension 05/24/2018 Overview (10/21/2023): Lisinopril 40mg, spironolactone 25mg daily Goal </= 130/80. Continue to encourage low salt diet, regular exercise, home BP monitoring, compliance with medications. Call clinic if BP is frequently >150/90 Go to ED/call 911 if > 170/100 and having sx such as PIERSON, visual changes, chest pain, SOB Last renal function: Lab Results Component Value Date GLUCOSE 114 02/23/2023 NA 135 02/23/2023 K 5.6 (H) 02/23/2023 CO2 24 02/23/2023 CL 102 02/23/2023 BUN 18 (H) 02/23/2023 CREATININE 0.98 02/23/2023 EGFR >60 02/23/2023 No results found for: MICROALBCREA Lab Results Component Value Date MICROALBCREU 5.0 02/23/2023 Morbid obesity 05/24/2018 Encounters Date Type Department Care Team Description 07/28/2024 Population Health Risk Score [facility] Department [address] [facility] [address] [place] [id number] Provider, Population Health Generic 07/19/2024 Refill [facility] MEDICINE [address] [place] [address] Jose De Jesus Gutierrez, JAYRO Essential hypertension 07/07/2024 2:00 PM EST Telemedicine [facility] MEDICINE [address] [place] [address] Jose De Jesus Gutierrez RN Uncomplicated opioid dependence (CMS/HCC) 07/07/2024 Travel 07/05/2024 Refill [facility] MEDICINE [address] [place] [address] Jose De Jesus Gutierrez RN Uncomplicated opioid dependence (CMS/HCC) 06/27/2024 3:30 PM EST Office Visit [facility] OPTOMETRY [address] [place] [address] Rey, Addis, OD Presbyopia (Primary Dx); Pterygium of both eyes 06/27/2024 Travel 06/14/2024 9:15 AM EST Office Visit [facility] MEDICINE [address] [place] [phone] Kailee Heath MD Opioid use disorder in remission (Primary Dx) 06/14/2024 Travel 06/07/2024 Refill [facility] MEDICINE [address] [place] [phone] Jose De Jesus Gutierrez RN Uncomplicated opioid dependence ([facility]/HCC) 06/07/2024 Telephone [facility] MEDICINE [address] [place] [phone] Jose De Jesus Gutierrez, JAYRO PT-1 05/30/2024 Telephone [facility] MEDICINE [address] [place] [phone] Juan M Martinez, MD July recall 05/29/2024 Refill [facility] MED & PEDS [address] [place] [address] Giorgio Gloria MD Uncomplicated opioid dependence (CMS/HCC) 05/11/2024 10:15 AM EST Office Visit [facility] MEDICINE [address] [place] [phone] Magali Meléndez ANP Prediabetes (Primary Dx); Recurrent pain of right knee; Dyslipidemia; Essential hypertension; Morbid obesity (CMS/HCC); Impaired fasting glucose; Screening for lung cancer 05/11/2024 Travel 05/08/2024 Telephone [facility] MEDICINE [address] [place] [phone] Jose De Jesus Gutierrez RN from Last 3 Months Immunizations Name Administration Dates Next Due Influenza injectable quadrivalent preservative f ree 02/23/2023 Pneumococcal Conjugate PCV 13 10/29/2015 TD (adult), 2 Lf tetanus tox oid, preservative free, adsorbed 09/16/2016 Tdap 11/21/2020 Social History Tobacco Use Types Packs/Day Years Used Date Smoking Tobacco: Former Cigarettes Smokeless Tobacco: Never Tobacco Cessation:Counseling Given: Not Answered Alcohol Use Standard Drinks/Week Comments Never 0 [...] Orientation Straight 03/16/2022 10 :34 AM EDT Last Filed Vital Signs Vital Sign Reading Time Taken Comments Blood Pressure 113/74 05/11/2024 10:35 AM EST Pulse 73 05/11/2024 10:35 AM EST Temperature 36.4 ??C (97.5 ??F) 05/11/2024 10:[address] Respiratory Rate 14 05/11/2024 10:35 AM EST Oxygen Saturation 98% 05/11/2024 10:35 AM EST Inhaled Oxygen Concentration - - Weight 152 kg (336 lb) 05/11/2024 10:35 AM EST Height 190.5 cm (6' 3 ) 10/21/2023 1:29 PM EDT Body Mass Index 42 10/21/2023 1:29 PM EDT Plan of Treatment Upcoming Encounters Date Type Department Care Team (Late st Contact Info) Description 08/09/2024 10:15 AM EDT Telemedicine [facility] MED[facility]INE [address] [place] [phone] Kailee Heath MD [address] [place] [address] 08/10/2024 2:00 PM EDT Office Visit [facility] MED[facility] [address] [place] [phone] Magali Meléndez ANP [address] [place] [address] Health Maintenance Due Date Last Done Comments CT Colonography 1972 Colonoscopy 1972 FIT 1972 FOBT 1972 Sigmoidoscopy 1972 Diabetes: Foot Exam 01/12/1982 Alcohol/Substance Use Screening 1984 Family Planning (PISQ) 01/12/1987 Pneumococcal Vaccine: 50+ Years (2 of 2 - PPSV23) 12/24/2015 10/29/2015 Zoster Vaccines (1 of 2) 01/12/2022 COVID-19 Vaccine ( season) 2024 06/06/2021, 08/26/2020, 07/29/2020 Influenza Vaccine (#1) 2024 02/23/2023 Diabetes: Hemoglobin A1C 02/12/2024 024, 02/23/2023, 12/03/2020 Diabetes: Urine Protein Screening 02/24/2024 02/23/2023 Lipid Panel 02/24/2024 02/23/2023, 12/03/2020 Depression Monitoring (PHQ-9) 08/24/2024 02/24/2024, 02/24/2024 Depression Screening 02/23/2025 02/24/2024, 02/24/20 SDOH Screening 05/11/2025 05/11/2024 Tobacco Screening 07/17/2025 07/17/2024 Colorectal Cancer Screening 03/08/2026 FIT DNA/Cologuard 03/08/2026 03/08/2023 Eye Exam 06/27/2026 06/27/2024, 06/17, 06/27/2024, Additional history exists DTaP/Tdap/Td Vaccines (2 - Td or Tdap) 11/21/2030 11/21/2020, 09/16/2016 RSV Patients and Patients Aged 60 years or older (1 - 1-dose 75+ series) 01/12/2047 HIV Screening Completed 02/17/2024, 12/2020, 12/03/2020 Hepatitis C Screening Completed 02/17/2024 , 04/30/2020, 04/30/2020 HIB Vaccines Aged Out No longer eligi ble based on patient's age to complete this topic HPV Vaccines Aged Out No longer eligi ble based on patient's age to complete this topic Hepatitis A Vaccines Discontinued Hepatitis B Vaccines Discontinued IPV Vaccines Aged Out No longer eligi ble based on patient's age to complete this topic Meningococcal Vaccine Aged Out No lori antonieta eligible based on patient's age to complete this topic RSV under 20 months Aged Out No longe r eligible based on patient's age to complete this topic Rotavirus Vaccines Aged Out No longer eligible based on patient's age to complete this topic Goals Goal Patient Goal Type Associated Problems Recent Progress Patient-Stated? 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 COLON CANCER SCREEN Routine 03/08/2023 12:37 PM EDT Screening for malignant neoplasm of colon ALBUMIN, RANDOM URINE W/CREATININE Routine 02/23/2023 2:51 PM EDT Essential hypertension LIPID PANEL, STANDARD Routine 02/23/2023 2:51 PM EDT Dyslipidemia from Last 3 Months or Most Recently Relevant to Health Maintenance Results * POCT LINCOLN-14 Urine Drug Screen (06/14/2024 9:55 AM EST) THC Positive Cocaine Screen, Urine Negative Opiate Screen, Urine Negative Methamphetamine Screen Urine Negative Amphetamine Screen, Urine Negative Benzodiazepines Screen, Urine Negative Barbiturate Screen, Urine Negative Methadone Screen, Urine Negative Buprenophine Screen, Urine Positive TCA, Urine Negative MDMA Urine Negative ng/mL Oxycodone Screen, Urine Negative Phencyclidine (PCP), Urine Negative Propoxyphene, Urine Negative Fentanyl, Urine Negative Urine Urine specimen obtained by clean catch procedure / Unknown 06/14/2024 9:55 AM EST Kailee Heath MD POINT OF CARE TEST ENTER/EDIT OR DERABLES Final Result * Hepatitis C Viral RNA, Quantitative, Real-Time PCR (02/17/2024 9:45 AM EDT) Hepatitis C Viral Load <15 NOT DETECTED NOT DETECTED IU/mL [facility] HCV Log PCR <1.18 NOT DETECTED NOT DETECTED Log IU/mL [facility] Comment:For additional infor roger, please refer tohttp://education.[employer]/faq/SLJ45y7(This link is being provided for informational/educational purposes only.)THIS TEST WAS PERFORMED AT:[employer] [place] [phone] FIELD MD 02/17/2024 9:45 AM EDT 02/17/2024 11:16 AM EDT us Kailee Heath MD LAB BLOOD ORDERABLES Final Resul t Performing Organization Address [facility]/ZIP Co de Phone Number [facility] [address] [place] [address] [phone] * HIV-1/2 Antigen and Antibodies, Fourth Generation, with Reflexes (02/17/2024 9:45 AM EDT) [facility] HIV AB/AG Nonreactive Nonreactive [facility] Comment:HIV-1 p24 Ag and/or HIV-1/HIV-2 Ab not detected.A test result that is nonreactive does not exclude thepossibility of exposure to or infection with HIV-1 and/orHIV-2. Nonreactive results in this assay for individualswith prior exposure to HIV-1 and/or HIV-2 may be due toantigen and antibody levels that are below the limit ofdetection of this assay.The [employer] HIV Ag/Ab Combo assay result andsupplemental assay results should be interpreted inconjunction with the patient's clinical presentation,history and other laboratory results. If the results areinconsistent with clinical evidence, additional testing issuggested to confirm the result. 02/17/2024 9:45 AM EDT 02/17/2024 11:16 AM EDT us Kailee Heath MD LAB BLOOD ORDERABLES Final Resul t [facility] [address] [place] [address] [phone] * (ABNORMAL) Hemoglobin A1c (08/12/2023 1:52 PM EDT) Hemoglobin A1c 6.6(H) <6.0 % [facility] Comment:Hemoglobin A1C Refer ence Range Adults: 4.8 - 6.0 % Non diabetic: < 6.0 % Goal: < 7.0 %Additional Action Suggested: > 8.0 %Note: Hemoglobin A1c results are invalid for patients with abnormal amounts of HbF. Blood transfusions may impact the HbA1c concentration in the patient sample. Estimated Average Glucose 143 mg/dL [facility] Comment:eAG = Estimated ave rage glucose which is %A1C expressed asaverage glucose, using the formula of the K1I-BvfbufrNegooha Glucose study (ADAG), Diabetes Care, Vol.31,#8,Dec. 2007 Blood Venous blood specimen / Unknown 08/12/2023 1:52 PM EDT 08/12/2023 4:12 PM EDT [facility] LAB BLOOD ORDERABLES Final Resul t [facility] [address] [place] [phone] * (ABNORMAL) Cologuard?? colon cancer screening (03/08/2023 12:37 PM EDT) Cologuard Result Positive( A) Negative 03/13/2023 2:44 AM EDT [facility] (CLIA #:[id number]) Comment: POSITIVE TEST RESULT. A positive Cologuard result should be followed with a colonoscopy or visual examination of the colon. The normal value (reference range) for this assay is negative. TEST DESCRIPTION: Composite algorithmic analysis of stool DNA-biomarkers with hemoglobin immunoassay. ?? Quantitative values of individual biomarkers are not reportable and are not associated with individual biomarker result reference ranges. Cologuard is intended for colorectal cancer screening of adults of either sex, 45 years or older, who are at average-risk for colorectal cancer (CRC). Cologuard has been approved for use by the U.S. FDA. The performance of Cologuard was established in a cross sectional study of average-risk adults aged 50-84. Cologuard performance in patients ages 45 to 49 years was estimated by sub-group analysis of near-age groups. Colonoscopies performed for a positive result may find as the most clinically significant lesion: colorectal cancer [4.0%], advanced adenoma (including sessile serrated polyps greater than or equal to 1cm diameter) [20%] or non- advanced adenoma [31%]; or no colorectal neoplasia [45%]. These estimates are derived from a prospective cross-sectional screening study of 10,000 individuals at average risk for colorectal cancer who were screened with both Cologuard and colonoscopy. (Nicole Prasad al, N Engl J Med 2014;370(14):2279-2186.) Cologuard may produce a false negative or false positive result (no colorectal cancer or precancerous polyp present at colonoscopy follow up). A negative Cologuard test result does not guarantee the absence of CRC or advanced adenoma (pre-cancer). The current Cologuard screening interval is every 3 years. ([place] [employer] and U.S. Multi-Society Task Force). Cologuard performance data in a 10,000 patient pivotal study using colonoscopy as the reference method can be accessed at the following location: www.[employer]/results. Additional description of the Cologuard test process, warnings and precautions can be found at www.[employer].com. Stool specimen (specimen) 03/08/2023 12:37 PM EDT 03/09/2023 9:43 PM EDT [facility] MOLECULAR DIAGNOSTICS ORDERA BLES Final Result [facility] (CLIA #:[id number]) [place] [address], * Albumin, Random Urine W/Creatinine (02/23/2023 2:51 PM EDT) Creatinine, Urine 653.44 mg/dL [facility] Microalbumin Urine 33.0 mg/L [facility] Microalbum Creatinine Ratio Ur 5.0 <30 ug/mg cr [facility] Comment:Albumin/Creatinine R atio Reference Ranges: Normal: < 30 ug/mg creatinine Microalbuminuria: 30 - 300 ug/mg creatinineClinical Albuminuria: > 300 ug/mg creatinine Urine (Urine, Random) 02/23/2023 2:51 PM EDT 02/23/2023 3:53 PM EDT us Magali Meléndez [facility] LAB URINE ORDERABLES Final Resul t [facility] [address] [place] [phone] * (ABNORMAL) Lipid Panel, Standard (02/23/2023 2:51 PM EDT) Triglycerides 151(H) <150 mg/dL [facility] Comment:Desirable Triglyceri de: less than 150 mg/dLBorderline High Triglyceride 150-199 mg/dLHigh Triglyceride: 200-499 mg/dLVery High Triglyceride: greater than or equal to 5OO mg/dL Cholesterol 135 <200 mg/dL [facility] Comment:Desirable Cholestero l: less than 200 mg/dLBorderline High Cholesterol: 200-239 mg/dLHigh Cholesterol: greater than 239 mg/dL LDL Cholesterol Calculated 65 <100 mg/dL [facility] Comment:Desirable LDL: less than 100 mg/dLNear Optimal/Above Optimal LDL: 110- 129 mg/dLBorderline High LDL: 130-159 mg/dLHigh LDL: 160-189 mg/dLVery High LDL: greater than or equal to 190 mg/dL HDL Cholesterol 40(L) >40 mg/dL [facility] Comment:Desirable HDL: great er than 40 mg/dL Note: This HDL assay may give artificially low results in patients with liver disease. 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
--- OUTSIDE RECORDS SUMMARY | 2024-08-01 13:21 | XMS_ITS | Encounter Summary ---
Author Organization [employer] Address 75 [facility] 7t [place] [address] Care Team Providers Care Box Sealing Machine Operator Name Role Phone Magali Meléndez Primary Care Provider [phone] Encounter Details Date Type Department Care Team ([facility] st Contact Info) Description 07/28/2024 Population Health Risk Score [facility] (C3) Department 75 [facility] 7 [place] [phone] Provider, Population Health Generic Social History Tobacco Use Types Packs/Day Years [...] Info) Description 08/09/2024 10:15 AM EDT Telemedicine [facility] MEDICINE [address] [place] [phone] Kailee Heath MD [address] [place] [phone] 08/10/2024 2:00 PM EDT Office Visit [address] [address] Magali Meléndez ANP [address] [place] [address] documented as of this encounter Goals Goal Patient Goal Type Associated Problems Recent Progress Patient-Stated? Author Increase coping skills to promote long-term recovery and improve ability to perform daily activities General No Jose De Jesus Gutierrez, RN documented as of this encounter Visit Diagnoses Not on filedocumented in this encounter Additional Health Concerns Assessment Noted Time PHQ-9 Depression Total Score: 10 024 2:27 PM EDT documented as of this encounter Care Teams Box Sealing Machine Operator Relationship Specialty Start Date End Date Magali Meléndez ANP [address] [place] [phone] PCP - General Family Medicine 05/31/20 documented as of this encounter
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
--- OUTSIDE RECORDS SUMMARY | 2024-08-01 13:21 | XMS_ITS | Encounter Summary ---
Author Organization [employer] Address 75 [facility] 7t [place] [address] Care Team Providers Care Restoration Ecologist Name Role Phone Magali Meléndez Primary Care Provider [phone] Reason for Visit * Reason Comments Med Refill Encounter Details Date Type Department Care Team ([facility] st Contact Info) Description 08/17/2023 Refill [facility] CHC MED & PEDS [address] [place] [address] Magali Meléndez ANP [address] [place], [place] [phone] Social History Tobacco Use Types Packs/Day Years [...] Answer Date Recorded Patient Health Questionnaire-9 Score 7 11/26/2022 Housing Stability Answer Date Recorded What is [...] Answer Date Recorded Patient Health Questionnaire-2 Score 0 02/23/2023 Sex and Gender Information Value Date Recorded Sex Assigned at Male 03/16/2022 10:34 AM EDT Legal Sex Male 10:34 AM EDT Gender Identity Male 03/16/2022 10:34 AM EDT Sexual Orientation Straight 03/16/2022 10 :34 AM EDT documented as of this encounter Plan of Treatment Upcoming Encounters Date Type Department Care Team (Late st Contact Info) Description 08/09/2024 10:15 AM EDT Telemedicine [facility] MEDICINE [address] [place] [phone] Kailee Heath MD [address] [place] [phone] 08/10/2024 2:00 PM EDT Office Visit [facility] MEDICINE [address] [place] [phone] Magali Meléndez ANP [address] [place] [phone] documented as of this encounter Visit Diagnoses Not on filedocumented in this encounter Additional Health Concerns Assessment Noted Time PHQ-9 Depression Total Score: 7 11/27/19 23 8:38 AM EDT documented as of this encounter Care Teams Restoration Ecologist Relationship Specialty Start Date End Date Magali Meléndez ANP [address] [place] [address] PCP - General Family Medicine 05/31/20 documented as of this encounter
--- OUTSIDE RECORDS SUMMARY | 2024-08-01 13:21 | XMS_ITS | Encounter Summary ---
Author Organization [employer] [facility] Address 75 [facility] 7t [place] [address] Care Team Providers Care Cancer Registrar Name Role Phone Magali Meléndez Primary Care Provider [phone] Encounter Details Date Type Department Care Team (Late st Contact Info) Description 08/28/2022 Orders Only [facility] MEDICINE [address] [place] [address] [phone] Kailee Heath MD [address] [place] [address] [phone] Opioid use disorder (Primary Dx) Social History Tobacco Use Types Packs/Day Years Used Date Smoking Tobacco: Never Assessed Sex and Gender Information Value Date Recorded Sex Assigned at Male 03/16/2022 10:34 AM EDT Legal Sex Male 10:34 AM EDT Gender Identity Male 03/16/2022 10:34 AM EDT Sexual Orientation Straight 03/16/2022 10 :34 AM EDT COVID-19 Exposure Response Date Recorded In the last 10 days, have yo u been in contact with someone who was confirmed or suspected to have Coronavirus/COVID-19? No / Unsure 08/07/2022 8:41 AM EDT documented as of this encounter Plan of Treatment Upcoming Encounters Date Type Department Care Team (Late st Contact Info) Description 08/09/2024 10:15 AM EDT Telemedicine [facility] MEDICINE [address] [place] [address] [phone] Kailee Heath MD [address] [place] [address] [phone] 08/10/2024 2:00 PM EDT Office Visit [facility] MEDICINE [address] [place] [phone] Magali Meléndez ANP [address] [place] [address] documented as of this encounter Visit Diagnoses Diagnosis Opioid use disorder- Primary documented in this encounter Care Teams Cancer Registrar Relationship Specialty Start Date End Date Magali Meléndez ANP [address] [place] [address] PCP - General Family Medicine 05/31/20 documented as of this encounter
--- OUTSIDE RECORDS SUMMARY | 2024-08-01 13:21 | XMS_ITS | Encounter Summary ---
Author Organization [email or web address] [facility] Address [address] [place] [address] 7t [place] [address] Care Team Providers Care Manager Editorial Name Role Phone Magali Meléndez Primary Care Provider [phone] Encounter Details Date Type Department Care Team (Late st Contact Info) Description 11/09/2022 Orders Only [facility] CHC MED & PEDS [address] [place] [address] Lianet Woodward LPN Social History Tobacco Use Types Packs/Day Years [...] Info) Description 08/09/2024 10:15 AM EDT Telemedicine [facility] MEDICINE [address] [place] [phone] Kailee Heath MD [address] [place] [phone] 08/10/2024 2:00 PM EDT Office Visit [facility] MEDICINE [address] [place] [address] Magali Meléndez ANP [address] [place] [phone] documented as of this encounter Visit Diagnoses Not on filedocumented in this encounter Care Teams Manager Editorial Relationship Specialty Start Date End Date Magali Meléndez ANP [address] [place] [address] PCP - General Family Medicine 05/31/20 documented as of this encounter
--- OUTSIDE RECORDS SUMMARY | 2024-08-01 13:21 | XMS_ITS | Encounter Summary ---
Author Organization [employer] Address 75 [facility] 7t [place] [address] Care Team Providers Care Technical Sourcing Recruiter Name Role Phone Magali Meléndez Primary Care Provider [phone] Reason for Visit * Reason Onset Date Comments Med Refill 07/05/2024 Encounter Details Date Type Department Care Team (Late st Contact Info) Description 07/05/2024 Refill [facility] MEDICINE [address] [place] [address] Jose De Jesus Gutierrez RN [address] [place] [address] Uncomplicated opioid dependence ([facility]) Social History Tobacco Use Types Packs/Day Years [...] Info) Description 08/09/2024 10:15 AM EDT Telemedicine [facility] MEDICINE [address] [place] [address] Kailee Heath MD [address] [place] [address] 08/10/2024 2:00 PM EDT Office Visit [facility] MEDICINE [address] [place] [phone] Magali Meléndez ANP [address] [place] [phone] documented as of this encounter Visit Diagnoses Diagnosis Uncomplicated opioid dependence (CMS/HCC) documented in this encounter Additional Health Concerns Assessment Noted Time PHQ-9 Depression Total Score: 10 024 2:27 PM EDT documented as of this encounter Care Teams Technical Sourcing Recruiter Relationship Specialty Start Date End Date Magali Meléndez ANP [address] [place] [phone] PCP - General Family Medicine 05/31/20 documented as of this encounter
[2024-08-01 13:35] LABS: Cholesterol 187 mg/dL (<200); HDL Cholesterol 58 mg/dL (>40); LDL Cholesterol Calculated 106 mg/dL (<100); Triglycerides 117 mg/dL (<150)
[2024-08-01 13:39] LABS: Estimated Average Glucose 131 mg/dL; Hemoglobin A1C 159.6984 umol/L; Hemoglobin A1c % 6.2 % (<6.0); Total Hemoglobin (HGBA1C) 3573.9843 umol/L
== END 2024-08-01 11:06 | disposition home or self-care (01) ==
LOC: HO.HHCL 11:05
PROVIDERS: Visit Provider Nurse Practitioner Primary Care
DX: I15.2 Hypertension secondary to endocrine disorders (principal); E11.59 Type 2 diabetes mellitus with other circulatory complications
CPT/HCPCS: 36415; 80061; 82043; 82570; 83036

== ENCOUNTER 2024-12-08 10:13 | Outpatient (REF) | payer MEDICAID, SELFPAY ==
--- NOTE | ~2024-12-08 | XR_ITS ---
EXAMINATION: XR KNEE, LEFT CLINICAL INFORMATION: atraumatic L knee pain COMPARISON: None available. TECHNIQUE: Three views of the left knee. FINDINGS: There is a small amount joint fluid. There is moderate narrowing of the medial joint space and mild to moderate narrowing of the lateral joint space. There is severe deformity of the articular surfaces with flattening and angular deformity. There is medial subluxation of the distal femur. There are large tricompartmental osteophytes. XR/XR knee LT 3V IMPRESSION: Moderate osteoarthritis with severe deformity and remodeling. Electronically signed by: Ventura Wilcox MD 12/08/2024 11:26 AM EDT
--- NOTE | ~2024-12-08 | XR_ITS ---
EXAMINATION: XR SHOULDER, RIGHT CLINICAL INFORMATION: chronic R shoulder pain, decreased ROM x years COMPARISON: None available. TECHNIQUE: AP external rotation, Grashey, scapular Y, and axillary views of the right shoulder. FINDINGS: There are moderate severe degenerative change with narrowing of the glenohumeral joint. There is a large medial humeral osteophyte. The joint is not dislocated. AC joint is within normal limits. XR/XR shoulder RT min 2V IMPRESSION: Moderate to severe degenerative changes of the right shoulder joint. Electronically signed by: Ventura Wilcox MD 12/08/2024 11:25 AM EDT
--- NOTE | ~2024-12-08 | XR_ITS ---
EXAMINATION: XR LUMBOSACRAL SPINE CLINICAL INFORMATION: atraumatic low back pain radiating to LLE COMPARISON: None available. TECHNIQUE: Three views of the lumbosacral spine. FINDINGS: There are 5 nonrib-bearing lumbar segments There is mild wedging of T11 and T12. There is minimal grade 1 retrolisthesis at L2-3 and L4-5. T12-L1: There is bridging anterior osteophyte L1-L2: There is mild disc space narrowing and bridging anterior osteophyte L2-L3: There is mild disc space narrowing and nonbridging anterior osteophytes L3-L4: There is moderate disc space narrowing and syndesmophytes versus partial nonsegmentation. L4-L5: There is moderate disc space narrowing with endplate sclerosis and osteophytes. There is facet sclerosis. L5-S1: There is facet sclerosis and subtle anterolisthesis likely with underlying pars interarticularis defects. XR/XR lumbar spine 2-3V IMPRESSION: Multilevel degenerative changes and likely underlying diffuse idiopathic skeletal hyperostosis (DISH) Mild wedging of T11 and T12 could be physiologic in nature, though chronic mild compression fracture is not ruled out. Electronically signed by: Ventura Wilcox MD 12/08/2024 11:29 AM EDT
--- OUTSIDE RECORDS SUMMARY | 2024-12-08 10:30 | XMS_ITS | Encounter Summary ---
Author Organization [employer] Address 75 [facility] 7t [place] [address] Care Team Providers Care Backend Python Developer Name Role Phone Magali Meléndez Primary Care Provider [phone] Reason for Visit * Reason Comments Med Refill Encounter Details Date Type Department Care Team ([facility] st Contact Info) Description 11/22/2023 Refill [facility] MEDICINE 230 [place], [place] [phone] Kailee Heath MD [address] [place], [place] [phone] Uncomplicated opioid dependence (CMS/HCC) Social History Tobacco [...] Care Team (Late st Contact Info) Description 12/27/2024 9:15 AM EDT Office Visit [facility] MEDICINE [address] [place] [phone] Kailee Heath MD [address] [place] [phone] 02/13/2025 2:15 PM EDT Office Visit [facility] MEDICINE [address] [place] [phone] Magali Meléndez ANP [address] [place] [phone] documented as of this encounter Visit Diagnoses Diagnosis Uncomplicated opioid dependence (CMS/HCC) documented in this encounter Additional Health Concerns Assessment Noted Time PHQ-9 Depression Total Score: 16 024 11:14 AM EDT documented as of this encounter Care Teams Backend Python Developer Relationship Specialty Start Date End Date Magali Meléndez ANP [address] [place] [phone] PCP - General Family Medicine 05/31/20 documented as of this encounter
== END 2024-12-08 10:14 | disposition home or self-care (01) ==
LOC: HO.HHCX 10:13
PROVIDERS: Visit Provider Nurse Practitioner Primary Care
DX: M25.511 Pain in right shoulder (principal); G89.29 Other chronic pain; M25.562 Pain in left knee; M54.42 Lumbago with sciatica, left side
CPT/HCPCS: 72100; 73030; 73562

== ENCOUNTER → 2024-12-08 10:13 | Outpatient (BNV) | payer MEDICAID, SELFPAY | PROVIDERS: Visit Provider Radiology Diagnostic Radiology | DX: M48.16 Ankylosing hyperostosis [Forestier], lumbar region (principal); M19.011 Primary osteoarthritis, right shoulder; M17.12 Unilateral primary osteoarthritis, left knee | CPT/HCPCS: 72100; 73030; 73562 ==